=== PATIENT | female | born 1995 | race African-American/Black ===

== ENCOUNTER 2017-03-27 12:35 | Emergency (ER) | payer MEDICAID ==
[~2017-03-27] VITALS: Ht 165.1 cm; Wt 58.0 kg
[2017-03-27 14:32] LABS: KETONES URINE TRACE (NEGATIVE); LEUKOCYTE ESTERASE URINE NEGATIVE (NEGATIVE); NITRITE URINE NEGATIVE (NEGATIVE); OCCULT BLOOD URINE 2+ (NEGATIVE); PROTEIN URINE 1+ (NEGATIVE); SPECIFIC GRAVITY URINE 1.029 (1.005-1.030); UROBILINOGEN URINE 0.2 E.U./dL (0.2-1.0)
[2017-03-27 14:35] LABS: CLARITY URINE HAZY (CLEAR); COLOR URINE DARK YELLOW (YELLOW)
[2017-03-27 14:49] LABS: BASOPHILS % 1.4 % (0.0-2.0); EOSINOPHILS % 3.2 % (0.0-5.0); HEMATOCRIT. 29.4 % (36.0-48.0); HEMOGLOBIN. 9.3 g/dL (12.0-16.0); LYMPHOCYTES % 35.7 % (20.0-50.0); MEAN CORPUSCULAR HEMOGLOBIN 23.1 pg (28.0-32.0); MEAN CORPUSCULAR VOLUME 73.1 fL (81.0-99.0); MONOCYTES % 6.8 % (2.0-8.0); NEUTROPHILS % 52.9 % (40.0-76.0); PLATELET 214 x1000/uL (130-400); RED BLOOD CELL COUNT 4.02 mill/uL (4.2-5.4); RED CELL DISTRIBUTION WIDTH 18.3 % (11.6-14.6)
[2017-03-27 14:52] LABS: CHLORIDE 109 mEq/L (98-107)
[2017-03-27 15:02] LABS: CARBON DIOXIDE 26 mEq/L (21-32)
[2017-03-27 16:59] VITALS: BP 116/69
== END 2017-03-27 17:28 | disposition home or self-care (01) ==
LOC: ER 14:11
DX: N93.9 Abnormal uterine and vaginal bleeding, unspecified (principal); D64.9 Anemia, unspecified; F12.10 Cannabis abuse, uncomplicated
CPT/HCPCS: 36415; 76830; 76856; 80053; 81001; 81025; 85025; 99285

== ENCOUNTER 2021-04-28 11:41 | Emergency (ER) | payer MEDICAID ==
[~2021-04-28] VITALS: Ht 167.6 cm; Wt 61.0 kg
[2021-04-28 11:44] VITALS: BP 121/76
== END 2021-04-28 13:50 | disposition home or self-care (01) ==
LOC: ER 11:41
DX: U07.1 COVID-19 (principal); B34.9 Viral infection, unspecified; F12.10 Cannabis abuse, uncomplicated
CPT/HCPCS: 99283; C9803; U0003; U0005

== ENCOUNTER 2025-07-20 10:15 | Emergency (ER) | payer MEDICAID, OTHER ==
[~2025-07-20] VITALS: Ht 167.6 cm; Wt 75.0 kg
[2025-07-20] MEDS ORDERED: DEXAMETHASONE 1 MG/ML ORAL SYR PO ONE (11:15)
[2025-07-20 11:30] VITALS: PULSE 86; RESP 20; O2SAT 100
[2025-07-20] MEDS: IPRATROPIUM BROMIDE (0.02%) 0.5MG/2.5ML NEB HHN SCH (11:33)
[2025-07-20] MEDS: ALBUTEROL (0.083%) 2.5MG/3ML NEB HHN SCH (11:33)
[2025-07-20] MEDS: DEXAMETHASONE 4MG TABLET PO SCH (12:34)
[2025-07-20] MEDS ORDERED: FLUC150T46 MT (12:43)
[2025-07-20] MEDS ORDERED: CLOT15CR27 TP (12:43)
[2025-07-20 12:59] VITALS: BP 120/68; PULSE 78; RESP 16; TEMP 36.7; O2SAT 100
== END 2025-07-20 13:00 | disposition home or self-care (01) ==
LOC: ER 10:15
DX: B37.9 Candidiasis, unspecified (principal); J18.9 Pneumonia, unspecified organism; R06.02 Shortness of breath; F10.90 Alcohol use, unspecified, uncomplicated; F12.90 Cannabis use, unspecified, uncomplicated; Y90.9 Presence of alcohol in blood, level not specified
CPT/HCPCS: 94640; 99283; J8540; Z7610 ×3